=== PATIENT | male | born 1940 | race Caucasian/White ===

== ENCOUNTER → 2016-08-28 | Outpatient (CLI) | payer MEDICARE, OTHER ==
[2016-08-28 09:31] LABS: BASOPHIL # 0.1 K/uL (0.0-0.2); BASOPHIL % 1.2 %; EOSINOPHIL # 0.1 K/uL (0.0-0.5); EOSINOPHIL % 2.9 %; HEMATOCRIT 36.5 % (37.0-53.0); HEMOGLOBIN 12.4 g/dL (11.0-16.0); IMMATURE GRANULOCYTE % 0.2 %; LYMPHOCYTE # 0.8 K/uL (0.8-4.0); LYMPHOCYTE % 19.8 %; MCH 31.3 pg (27.0-34.0); MCV 92.2 fl (83.0-98.0); MONOCYTE # 0.4 K/uL (0.0-1.0); MONOCYTE % 8.8 %; MPV 8.8 fl (9.4-12.4); NEUTROPHIL # (ANC) 2.8 K/uL (1.4-9.0); NEUTROPHIL % 67.1 %; NRBC % 0 /100WBC (0-0.00); PLATELET COUNT 130 K/uL (150-450); RBC 3.96 M/uL (3.50-5.50); RDW-CV 13.8 % (11.9-14.6); WBC 4.2 K/uL (4.0-11.0)
[2016-08-28 09:45] LABS: ALBUMIN 3.9 gm/dL (3.5-5.0); ANION GAP 15.5 (10.0-19.0); CALCIUM 8.7 mg/dL (8.5-10.5); CREATININE 1.7 mg/dL (0.6-1.3); POTASSIUM 4.5 mMol/L (3.7-5.1); TOTAL BILIRUBIN 0.8 mg/dL (0.0-1.5)
== END | disposition disaster alternative care site (69) ==
LOC: LNHI 09:26
PROVIDERS: Internal Medicine
DX: I48.2 Chronic atrial fibrillation (principal); Z95.0 Presence of cardiac pacemaker; I44.2 Atrioventricular block, complete

== ENCOUNTER → 2016-10-03 | Outpatient (CLI) | payer MEDICARE, OTHER ==
[2016-10-03 11:01] LABS: HEMATOCRIT 32.6 % (37.0-53.0); HEMOGLOBIN 11.1 g/dL (11.0-16.0); MCH 31.4 pg (27.0-34.0); MCV 92.1 fl (83.0-98.0); PLATELET COUNT 137 K/uL (150-450); RBC 3.54 M/uL (3.50-5.50); RDW-CV 13.9 % (11.9-14.6); WBC 4.6 K/uL (4.0-11.0)
[2016-10-03 11:09] LABS: ANION GAP 16.3 (10.0-19.0); CALCIUM 8.3 mg/dL (8.5-10.5); CREATININE 1.8 mg/dL (0.6-1.3); POTASSIUM 4.3 mMol/L (3.7-5.1)
[2016-10-03 11:51] LABS: ABSOLUTE NEUTROPHIL CT (ANC) 3.5 K/uL (1.4-9.0); BANDED NEUTROPHIL # 0.5 K/uL (0.0-0.1); BANDED NEUTROPHILS % 11 %; LYMPHOCYTE # 0.6 K/uL (0.8-4.0); LYMPHOCYTE % 12 %; MONOCYTE # 0.3 K/uL (0.0-1.0); SEGMENTED NEUTROPHIL % 66 %
== END | disposition disaster alternative care site (69) ==
LOC: LNHI 10:55
PROVIDERS: Internal Medicine
DX: I48.0 Paroxysmal atrial fibrillation (principal); E11.9 Type 2 diabetes mellitus without complications

== ENCOUNTER → 2016-10-11 | Outpatient (CLI) | payer MEDICARE, OTHER ==
[2016-10-11 14:43] LABS: BILIRUBIN URINE NEGATIVE (NEGATIVE); BLOOD URINE NEGATIVE /UL (NEGATIVE); COLOR URINE YELLOW (YELLOW); GLUCOSE URINE NEGATIVE (NEGATIVE); KETONE URINE NEGATIVE (NEGATIVE); LEUKOCYTES URINE NEGATIVE /UL (NEGATIVE); NITRITE URINE NEGATIVE (NEGATIVE); PROTEIN URINE 15 mg/dL (NEGATIVE); TURBIDITY URINE CLEAR (CLEAR); UROBILINOGEN URINE NORMAL (NORMAL)
[2016-10-11 14:50] LABS: BACTERIA URINE FEW (NEGATIVE); EPITHELIAL URINE 0-2 #/HPF (NEGATIVE); RBC URINE NEGATIVE #/HPF (NEGATIVE); WBC URINE NEGATIVE #/HPF (NEGATIVE)
[2016-10-11 14:51] LABS: MUCUS URINE 1+ (NEGATIVE)
== END ==
LOC: LNHI 14:39
PROVIDERS: Psychiatry & Neurology Neurology
DX: I48.91 Unspecified atrial fibrillation (principal)

== ENCOUNTER → 2016-11-19 | Outpatient (CLI) | payer MEDICARE ==
--- NOTE | ~2016-11-19 | ESTC ---
Cardiac Perfusion Imaging Demographics Patient Name ANTONELLA Gleason Gender Male Patient Number [id number] Race Visit Number [id number] Ethnicity [employer] ID Room Number Accession Number [id number] Height 74 inches Date of 1940 Weight 261 pounds Interpreting FAUSTINO Argueta Pearcy Date of study 11/19/2016 Physician Raúl Slade Supervising /SUDHA ALCANTAR Technologist Peg Slade Ordering Physician Raúl Slade health care sanitary technician Stress ECG Reading Raúl Nurse Mali Villalobos Physician [place] Roa Medications Reviewed with Patient prior to Procedure. Procedure Admit Source:Other. Procedure Type: Nuclear Stress Test:Pharmacological, Lexiscan, Cardiolite Stress Test Procedure Start time: 11/19/2016 09:00 Indications: Hypertension and Dyslipidemia. Risk Factors The patient risk factors include:obesity, former tobacco use, treated hypercholesterolemia, treated hypertension, family history of premature CAD, diabetes mellitus, chronic lung disease and dyslipidemia. Conclusions Summary Perfusion Images: The overall quality of the study is good. Left ventricular cavity is noted to be normal on the stress and rest studies. The right ventricle is not visualized and cannot be assessed. Stress SPECT images demonstrate homogenous tracer distribution throughout the myocardium . Rest SPECT images demonstrate mild decrease in tracer uptake in the septum and anterolateral wall. Gated SPECT imaging reveals normal myocardial thickening and wall motion. The left ventricular ejection fraction was calculated to be 53%. Impression ECG portion of stress test is clinically negative for ischemia by diagnostic criteria. Myocardial perfusion imaging is probably normal. The mild perfusion defect noted on rest images with improvement with stress is likely due to artifact. Overall left ventricular systolic function was normal without regional wall motion abnormalities. Stress Protocols Resting ECG A Fib with paced ventricular complexes Pre-stress physical exam: Patient assessed by Dr Handley prior to testing. Predicted HR: 145 bpm ECG Findings Indeterminate ECG due to paced ventricular complexes. Arrhythmias No new arrhythmias Symptoms Stomach discomfort Stress Interpretation ECG portion of stress test is negative for ischemia by diagnostic criteria. Nuclear images are pending. Imaging Results Summed scores - Summed stress score: 6 - Summed rest score: 7 - Summed difference score: -1 Stress ejection Ejection fraction:53 % EDV :155 ml ESV :73 ml Stroke volume :82 ml LV mass :158 gr Imaging Protocols Rest Stress Isotope:Tc99m Sestamibi IV Isotope: Tc99m Sestamibi IV Isotope dose:15.7 mCi Isotope dose:46 mCi Date:11/19/2016 07:45 Date:11/19/2016 09:26 Technique: SPECT Technique: Gated Supine SPECT Supine Scan Time:45-60 minutes post Scan Time:45-60 minutes post injection injection Procedure Medications - Regadenoson (Lexiscan) 0.4 mg IV over 10-15 sec. I.V. 0.4 mg. Medications administered per verbal order and read back to physician prior to administration. Medical History Admission Data Admission date: 11/19/2016 Admission Time: 07:22 Hospital Status: Outpatient. Signatures dtt: BER[place] HANDLEY dtd: 11/19/16 0900 Physician Self Edit
== END | disposition disaster alternative care site (69) ==
LOC: GRAD 07:22
DX: R53.83 Other fatigue (principal); E66.9 Obesity, unspecified; E78.00 Pure hypercholesterolemia, unspecified; E11.9 Type 2 diabetes mellitus without complications; E78.5 Hyperlipidemia, unspecified; I10 Essential (primary) hypertension; J98.4 Other disorders of lung; Z82.49 Family history of ischemic heart disease and other diseases of the circulatory system; Z87.891 Personal history of nicotine dependence
CPT/HCPCS: A9500; J2785